=== PATIENT | male | born 1930 | race Caucasian/White ===

== ENCOUNTER 2018-01-23 10:25 | Inpatient (IN) | payer OTHER ==
[2018-01-23] MEDS ORDERED: BUPIVACAINE/EPI 0.5% 30 ML SDV ONE (13:00)
[2018-01-23] MEDS ORDERED: THROMBIN (BOVINE) 5,000 UNIT VIAL TP ONE (13:00)
--- NOTE | 2018-01-23 13:57 | PDHPUP ---
History & Physical Update H&P update statement: This history and physical update is based on an assessment of the patient which was completed after admission or registration (within 24 hours), but prior to the surgery/procedure. H&P update: H&P reviewed & patient examined, changes noted H&P changes: second TIA since initial visit - opting for surgical managment rather than continued medical managment.
[2018-01-23] MEDS ORDERED: ONDANSETRON 4 MG/2 ML VIAL IVP PRN ×2 (13:58→17:40)
[2018-01-23] MEDS ORDERED: HYDROmorphONE/DILAUDID 1 MG/ML INJ IVP PRN (13:58)
[2018-01-23] MEDS ORDERED: HYDROCODONE/APAP 5/325 TAB PO PRN (13:58)
[2018-01-23] MEDS ORDERED: ACETAMINOPHEN 325 MG TAB PO PRN (13:58)
--- NOTE | 2018-01-23 13:58 | POSTOPPROG ---
Post Op Note Date of Operation: 01/23/18 Surgeon: Wilman Mendoza Anesthesiologist: Christiano Macias Anesthesia: GET(General Endotracheal) Pre-op Diagnosis: Symptomatic right carotid stenosis Post-op Diagnosis: Same Procedure: Right CEA Findings: extremely friable cheesy plaque with poor distal endpoint Inf/Abcess present in the surg proc area at time of surgery?: No EBL: Minimal Total fluids administered: 2 liters Complications: no immediate Specimen(s): plaque
--- NOTE | 2018-01-23 14:06 | PDANEPAE ---
ANE History of Present Illness here for CEA ANE Past Medical History - Cardiovascular History Hx Hypertension: Yes Hx Arrhythmias: No Hx Chest Pain: No Hx Coronary Artery / Peripheral Vascular Disease: Yes Hx CHF / Valvular Disease: No Hx Palpitations: No - Pulmonary History Hx COPD: No Hx Asthma/Reactive Airway Disease: No Hx Recent Upper Respiratory Infection: No Hx Oxygen in Use at Home: No Hx Sleep Apnea: Yes Sleep Apnea Screening Result - Last Documented: Positive - Neurologic History Hx Cerebrovascular Accident: No Hx Seizures: No Hx Dementia: No Neurologic History Comment: TIA X 3 PAST COUPLE OF WEEKS - Endocrine History Hx Diabetes: Yes Endocrine History Comment: DM - INSULIN - Renal History Hx Renal Disorders: No - Liver History Hx Hepatic Disorders: No - Neurological & Psychiatric Hx Hx Neurological and Psychiatric Disorders: No - Cancer History Hx Cancer: Yes Cancer History Comment: SKIN CA. PROSTATE - Congenital Disorder History Hx Congenital Disorders: No - GI History Hx Gastrointestinal Disorders: No - Other Health History Other Health History: NEG - Chronic Pain History Chronic Pain: Yes (NECK & BACK) - Surgical History Prior Surgeries: STEVEN TKA. HERNIA. NECK SURGERY. CABG X5 2004. KRISTAP YO Review of Systems Review of Systems: - Exercise capacity METS (RN): 4 METS ANE Patient History - Allergies Allergies/Adverse Reactions: No Known Allergies Allergy (Verified 08/14/12 10:07) - Home Medications Home Medications: Insulin Glargine [Lantus 100 UNITS/ML (RX)] 16 units SC HS 08/14/12 [Last Taken 01/22/18] Insulin Lispro [Humalog] 10 - 18 unit SQ TIDMEAL 08/14/12 [Last Taken 01/22/18] Rosuvastatin Calcium [Crestor 20mg (RX)] 10 mg PO DAILY 08/14/12 [Last Taken 04/06] Aspirin [Aspirin 81mg (*)] 81 mg PO DAILY 01/10/18 [Last Taken 01/22/18] C,E,Zinc,Copper 11/Qlmjr5n/Lut [Ocuvite Adult 50 Plus Softgel] 1 each PO DAILY 01/10/18 [Last Taken 01/16/18] Docusate Sodium [Colace 100 MG (*)] 100 mg PO DAILY 01/10/18 [Last Taken ] Herbals/Supplements -Info Only 1 ea PO DAILY 01/10/18 [Last Taken 01/22/18] Irbesartan [Avapro 150 mg (*)] 150 mg PO DAILY 01/10/18 [Last Taken 01/22/18] Metoprolol Succinate 50 mg PO DAILY 01/10/18 [Last Taken 01/23/18] - NPO status NPO Since - Liquids (Date): 01/23/18 NPO Since - Liquids (Time): 10:00 NPO Since - Solids (Date): 01/22/18 NPO Since - Solids (Time): 18:00 - Anes Hx Anes Hx: no prior problems - Smoking Hx Smoking Status: Never smoked - Alcohol Use Alcohol Use: None - Family Anes Hx Family Anes Hx: none Family Hx Anesthesia Complications: NEG ANE Labs/Vital Signs - Vital Signs Blood Pressure: 169/81 Heart Rate: 56 Respiratory Rate: 14 O2 Sat (%): 95 Height: 182.88 cm Weight: 81.647 kg ANE Physical Exam - Airway Neck exam: decreased ROM, spinal fusion Mallampati Score: Class 4 Mouth exam: normal dental/mouth exam - Pulmonary Pulmonary: no respiratory distress - Cardiovascular Cardiovascular: regular rate and rhythym - ASA Status ASA Status: III ANE Anesthesia Plan Anesthesia Plan: general endotracheal anesthesia Lines/Monitors: arterial line
[2018-01-23] MEDS ORDERED: PROPOFOL 200 MG/20 ML VIAL ONE (14:20)
[2018-01-23] MEDS ORDERED: fentaNYL 100 MCG/2 ML INJ ONE ×2 (14:20→19:19)
[2018-01-23] MEDS ORDERED: LIDOCAINE 1% 300 MG/30 ML SDV ONE (16:02)
[2018-01-23] MEDS ORDERED: SURGIFLO MATRIX KIT WITH THROMBIN 8ml TP ONE ×2 (17:06→17:09)
[2018-01-23] MEDS ORDERED: NALOXONE HCL 0.4 MG/ML INJ IVP PRN (17:40)
[2018-01-23] MEDS ORDERED: HYDROmorphONE/DILAUDID 2 MG/ML INJ IVP PRN (17:40)
[2018-01-23] MEDS ORDERED: ACETAMINOPHEN 500 MG TAB PO PRN (17:40)
--- NOTE | 2018-01-23 17:42 | POSTANESTH ---
Post Anesthetic Evaluation Cardiovascular Status: Normal, Stable, Similar to Pre-Op Cond Respiratory Status: Normal, Stable, Similar to Pre-op Cond. Level of Consciousness/Mental Status: Can Participate in Eval, Alert and Oriented Pain Control: Adequate, Prn Tx Ordered Nausea/Vomiting Control: Adequate, Prn Tx Ordered Complications Possibly Related to Anesthesia: None Noted
[2018-01-23] MEDS: fentaNYL 100 MCG/2 ML INJ IVP PRN ×2 (19:21→19:33)
[2018-01-23] MEDS ORDERED: ENALAPRILAT DIHYDRATE 1.25 MG/ML VIAL ONE ×2 (19:52→20:25)
[2018-01-23] MEDS ORDERED: ENALAPRILAT DIHYDRATE 1.25 MG/ML VIAL IVP ONE (20:00)
[2018-01-23] MEDS ORDERED: ENALAPRILAT DIHYDRATE 1.25 MG/ML VIAL IV ONE (20:30)
[2018-01-23] MEDS ORDERED: INSULIN GLARGINE 100 UNITS/ML UNIT SC SCH (21:30)
[2018-01-23] MEDS: IBUPROFEN 600 MG TAB PO SCH ×2 (23:09→23:14)
[2018-01-23] MEDS: INSULIN LISPRO 100 UNIT/ML SC SCH (23:09)
[2018-01-24] MEDS: INSULIN LISPRO 100 UNIT/ML SC SCH (08:18)
[2018-01-24] MEDS: IBUPROFEN 600 MG TAB PO SCH (08:20)
--- NOTE | 2018-01-24 08:57 | SOAPPROG ---
SOAP Progress Note Assessment/Plan: Assessment:no overnight complaints. no pain. no neuro changes. no difficulty swallowing. no voiding difficulties. no further vasotec needed. ambulating well. afebrile. bp 120/60. p 50-60. sitting up, conversive. neck with min swelling and ecchymosis. 2 + pulse. heart reg. lungs clear. neuro intact ( symmetric smile, tongue mid, normal BUE/BLE sensation/strength). doing well. home today. Plan: 01/24/18 08:54 Objective: Vital Signs Temp Pulse Resp BP Pulse Ox 36.7 C 59 L 15 121/61 H 92 01/24/18 03:37 01/24/18 03:37 01/24/18 03:37 01/24/18 03:37 01/24/18 03:37 01/23/18 01/24/18 01/25/18 05:59 05:59 05:59 Intake Total 2400 Output Total 370 Balance 2030 ICD10 Worksheet Patient Problems: Problems Problem Status Onset Carotid stenosis, symptomatic w/o infarct Acute
[2018-01-24] MEDS ORDERED: DOCUSATE SODIUM 100 MG CAP PO SCH (09:00)
[2018-01-24] MEDS ORDERED: ROSUVASTATIN CALCIUM 20 MG TAB PO SCH (09:00)
[2018-01-24] MEDS ORDERED: METOPROLOL SUCCINATE XR 50 MG TAB PO SCH (09:00)
[2018-01-24] MEDS ORDERED: IRBESARTAN 150 MG TAB PO SCH (09:00)
[2018-01-24] MEDS ORDERED: ASPIRIN 81 MG CHEWABLE TAB PO SCH (09:00)
[2018-01-24 09:27] VITALS: BP 100/49; PULSE 55; RESP 17; TEMP 97.6; O2SAT 90
--- NOTE | 2018-01-24 10:07 | GDS ---
[f rep st] DISCHARGE SUMMARY REASON FOR ADMISSION: Symptomatic right carotid stenosis. HOSPITAL COURSE: 87-year-old male with symptomatic right carotid artery stenosis as evidenced by multiple crescendo TIAs. He underwent an uncomplicated carotid endarterectomy. He had a benign postoperative course. He was discharged home the following day in excellent condition, tolerating a regular diet, ambulating, neurologically intact. His blood pressure was normalized back to his baseline values of 120/60 with pulse rate in the 50s to 60s. He was to resume all pre-hospital medications. He had prescriptions at home already for meloxicam for other aches and pains, which he will use as needed for discomfort. He will be seen in followup by Dr. Mendoza in 2 weeks. No activity restrictions were offered. Full instructions were explained to the patient and family at bedside. Copy requested to: Nadja Meadows /[id number]/MODL MTDD
--- NOTE | 2018-01-24 10:12 | GOP ---
[f rep st] OPERATIVE REPORT DATE OF OPERATION: 01/23/2018 SURGEON: Wilman Mendoza MD [employer]KE OPERATOR: Jakob Yanez MD. ANESTHESIA: General. ANESTHESIOLOGIST: Chris Foster MD. PREOPERATIVE DIAGNOSIS: Symptomatic right carotid artery stenosis. POSTOPERATIVE DIAGNOSIS: Symptomatic right carotid artery stenosis. PROCEDURE PERFORMED: Right carotid endarterectomy. FINDINGS: Cheesy ulcerating plaque. INDICATIONS: 87-year-old male with symptomatic right carotid stenosis with multiple recent crescendo TIAs. He is undergoing a carotid endarterectomy at this time. Risks and benefits were explained to the patient and family at length , including bleeding, infection, stroke, nerve injury, recurrent stenosis, adverse cardiovascular events, as well as others. All questions were entertained. He desires to proceed. DESCRIPTION OF PROCEDURE: General anesthesia was induced. A superficial cervical block was applied throughout the right neck. A longitudinal incision was created along the anterior border of the sternocleidomastoid muscle. The platysma muscle was divided. The anterior border of the sternocleidomastoid muscle was dissected out, exposing the carotid sheath. The diminutive facial vein was identified sitting low in the neck. This was divided between clamps and ties. The carotid artery was dissected out, including the common, internal, external, and superior thyroid artery branches. The vagus nerve was spared as was the hypoglossal nerve. A heparin bolus was administered. Occluding clamps were applied. A longitudinal arteriotomy was created through the distal common carotid artery up and through the internal carotid artery. An extremely friable , cheesy plaque was present. Using a [place] elevator, this was away from the common carotid artery and through the external. The internal had no smooth tapering endpoint at any time. A couple centimeters beyond the bifurcation, the plaque was transected. A series of tacking sutures were placed circumferentially. The arteries were back-bled showing excellent return flow from the intracranial system. All loose fronds were individually retrieved. The common and internal carotid arteries were of a sufficiently large caliber such that a patch was not utilized. The arteriotomy was closed with a running 6-0 Prolene suture. The artery was both forward-bled and back-bled prior to re- establishing flow. This was done initially to the external carotid artery followed by the internal carotid artery. Excellent hemostasis was assured throughout the neck cavity. Surgiflo was applied throughout the suture line. The neck was closed in layers with absorbable sutures by Dermabond. The patient was extubated after moving all 4 extremities well, and taken to recovery in good condition. Copy requested to: Nadja Meadows /[id number]/MODL MTDD
== END 2018-01-24 10:15 | disposition home or self-care (01) | DRG 39 ==
LOC: F2W 12:53
PROVIDERS: ADMIT Surgery; ATTEND Surgery
PROC: 03CK0ZZ Extirpation of Matter from Right Internal Carotid Artery, Open Approach (ICD-10-PCS; principal; 2018-01-23 14:30)
DX: I65.21 Occlusion and stenosis of right carotid artery (principal); E11.9 Type 2 diabetes mellitus without complications; G47.30 Sleep apnea, unspecified; I10 Essential (primary) hypertension; Z79.4 Long term (current) use of insulin; Z85.46 Personal history of malignant neoplasm of prostate; Z85.820 Personal history of malignant melanoma of skin; Z86.73 Personal history of transient ischemic attack (TIA), and cerebral infarction without residual deficits
CPT/HCPCS: J1644; J1815; J2704; J3010